=== PATIENT | male | born 1965 | race Caucasian/White ===

== ENCOUNTER 2023-09-19 11:13 | Emergency (ER) | payer OTHER, SELFPAY ==
[2023-09-19 11:16] VITALS: BP 181/98
[2023-09-19 11:40] VITALS: BP 148/94
--- NOTE | 2023-09-19 11:50 | ED.GENMED ---
History of Present Illness
General
Chief Complaint: Headache
Source: patient
Exam Limitations: none
Time Seen by Provider: 09/19/23 11:30
Nursing documentation reviewed up to this point in time: agreed with
Travel History
Have you had any contact with someone who has COVID-19?: No
Do you have any symptoms of coronavirus? Fever > 100 degrees, chills, cough, shortness of breath, sore throat, loss of taste or smell, muscle aches, or headache?: No
History of Present Illness
History of Present Illness:
57-year-old male presents emergency department complaining of right-sided headache and neck pain for 3 weeks. He was started on steroids yesterday for his headache. He saw his eye doctor yesterday because his right pupil was more dilated than the
left.
Past History
Past History
ED Past Medical History: Other (Hypertension, hyperlipidemia, anxiety and depression) and Other (TMJ. Right ear 'swishing sounds' started a year ago. Chronic headaches since childhood, had neg CT 10 yrs ago. Gets headache 2/week, takes Tylenol with
good relief. Just started wearing glasses 9 mos ago. Last eye exam 04/2012.)
ED Past Surgical History: Orthopedic (knee, ankle surgery)
Social History
Tobacco: Non-smoker
Alcohol: None
Personal:
Living: with roommate
Employment: Employed (ged teacher.)
Family History
Family History: CAD
Review of Systems
Review of Systems
Allergies reviewed?: Yes
All Other Systems: Not applicable
Constitutional: Reports no symptoms
EENT: Reports no symptoms
Respiratory: Reports no symptoms
Cardiac: Reports no symptoms
ABD/GI: Reports no symptoms
: Reports no symptoms
Musculoskeletal: Reports no symptoms
Skin: Reports no symptoms
Neurological: Reports headache
Endocrine: Reports no symptoms
Hematologic/Lymphatic: Reports no symptoms
Psychiatric: Reports no symptoms
Phy Exam
Physical Exam
Physical Exam:
Physical Exam
General: no apparent distress, not acutely ill
Neck: supple. no meningeal signs. normal posterior pharynx
Heart: s1/s2 regular rate and rhythm, no murmur. equal radial
pulses.
HEENT: Pupils round reactive to light, EOMI, right pupil slightly larger than left
Lungs: no acute respiratory distress. clear bilaterally
Abdomen: normal bowel sounds. not tender. no CVAT
Neuro: alert and oriented. no focal neurological deficits cranial nerves II through XII intact
Skin: no rash
Psychiatric: well kept. interactive and cooperative
Extremities: no edema. no calf tenderness. negative homans. good distal pulses
Course
Orders/Labs/Results
Orders:
Orders
09/19/23 11:38
CT Head & Neck Angio W/wo IV Urgent
Comment:
Reason For Exam: right side woods, neck pain, dilated right pupil 3wks
Cardiac Monitoring- Treatment ONCE
09/19/23 11:43
IV Insert/Care/Rem.- Treatment PRN
09/19/23 11:53
Complete Blood Count/With Diff Urgent
Comprehensive Metabolic Panel Urgent
Erythrocyte Sed Rate Urgent
PT/INR [Prothrombin Time] Urgent
PTT Urgent
09/19/23 13:43
Ketorolac [Toradol] 15 mg IV NOW STA
Abnormal Lab Results
09/19/23
11:53
WBC 10.9 H 10^3/uL
(4.8-10.8)
Abs Immat Gran (auto) 0.1 H 10^3/uL
(0-0.05)
Absolute Neuts (auto) 9.7 H 10^3/uL
(1.4-6.5)
Absolute Lymphs (auto) 0.9 L 10^3/uL
(1.2-3.4)
Neutrophils % 88.9 H %
(42.2-75.2)
Lymphocytes % 8.1 L %
(20.5-51.1)
Monocytes % 1.4 L %
(1.7-9.3)
APTT 23.3 L Sec
(23.4-35.0)
Glucose 145 H mg/dl
(70-99)
ALT 63 H U/L
(0-50)
Albumin 5.1 H g/dl
(3.5-5.0)
09/19/23 11:53
09/19/23 11:53
Vital Signs
Initial and Last Documented VS:
Initial Vital Signs
Temp Pulse Resp BP Pulse Ox
98.3 F 107 20 181/98 98
09/19/23 11:16 09/19/23 11:16 09/19/23 11:16 09/19/23 11:16 09/19/23 11:16
Last Documented Vital Signs
Temp Pulse Resp BP Pulse Ox
98.3 F 89 20 144/87 97
09/19/23 11:16 09/19/23 12:46 09/19/23 12:46 09/19/23 12:00 09/19/23 12:46
MDM/Problems Addressed
Differential Diagnosis Includes:
Arterial dissection, CVA
MDM/Problems Addressed:
57 yo male with right-sided headache, possibly migraine. Do not suspect arterial dissection. Normal CTA. No neurologic deficits. Stable for discharge.
Chronic conditions affecting care: Neurological disorder (Migraines)
Acute Exacerbation and/or Progression of Chronic Illness: Neurological disorder (Migraines) and Psychiatric illness (Anxiety)
*Radiology
Radiology exam reviewed: radiology read reviewed (CTA head and neck no acute findings)
*Pulse Oximetry
Patient hypoxic: no
*EKG
Interpreted by ED Provider?: NA
*Consulting Group Analyst Interpretation
Rate: Consulting Group Analyst- N/A
*Critical Care Note
Total Time (30-74mins, 75-104mins- exclusive of procedures): Not Applicable
Patient Management
Social determinants of health affecting care: Strong social support
Escalation/DeEscalation of care consider admission/obs:
Admit not indicated
ED Attending Note
-
Portions of this chart may have been created with voice recognition software.� Occasional wrong word or��sound alike� substitutions may have occurred due to the inherent limitations of voice recognition software.
Discharge Plan
Departure
Patient Disposition: Home (Routine Discharge)
Date of Disposition: 09/19/23
Time of Disposition: 13:54
Patient with high blood pressure during this ER visit?: Yes
Condition: Good
Discharge Problem:
Headache
Instructions: Headache, Adult (DC), BLOOD PRESSURE
Prescriptions:
No Action
multivitamin [Daily Multiple] 1 EACH tablet
1 tab PO DAILY
alprazolam 0.25 MG tablet
0.25 mg PO Q8HPRN PRN (Reason: anxiety)
amlodipine 5 MG tablet
10 mg PO DAILY
atorvastatin 10 MG tablet
10 mg PO DAILY
Patient Comments:
dose unknown by patient
cholecalciferol (vitamin D3) 2,000 UNIT tablet
1 tab PO DAILY
cannabidiol [Epidiolex] 1 UNIT solution
1
Referrals:
NONE,* [Active] -
Activity Restrictions/Additional Instructions:
Follow up with primary care in 3-5 days.
Interventions
Interventions:
*Risk Screen - Suicide Last Done: 09/19/23 11:16
*General Assessment Last Done: 09/19/23 11:16
*Neglect/Abuse Screening Last Done: 09/19/23 11:16
ED- Fall Risk Assessment Last Done: 09/19/23 11:38
*ED COVID-19 Vaccine History Last Done: 09/19/23 11:38
ED- Neurological Assessment Last Done: 09/19/23 11:38
Discharge Date and Time
Print Language: [id number]
[2023-09-19 12:00] VITALS: BP 144/87
[2023-09-19 12:08] LABS: % Basophils 0.9 % (0-2); % Eosinophils 0.2 % (0-6); % Immature Granulocytes 0.5 % (0-0.5); % Lymphocytes 8.1 % (20.5-51.1); % Monocytes 1.4 % (1.7-9.3); % Neutrophils 88.9 % (42.2-75.2); Absolute Basophils 0.1 10^3/uL (0-0.2); Absolute Immature Granulocytes 0.1 10^3/uL (0-0.05); Absolute Lymphocytes 0.9 10^3/uL (1.2-3.4); Absolute Monocytes 0.2 10^3/uL (0.1-0.6); Absolute Neutrophils 9.7 10^3/uL (1.4-6.5); Hematocrit 46.3 % (39.0-52.0); Hemoglobin 16.4 g/dL (13.0-18.0); Mean Corp Hgb Conc. 35.4 g/dL (33.0-37.0); Mean Corpuscular Hgb 29.7 pg (27.0-31.0); Mean Corpuscular Volume 83.7 fL (80.0-94.0); Mean Platelet Volume 9.6 fL (7.4-10.4); Nucleated Red Blood Cells % 0 % (-); Platelet Count 333 10^3/uL (130-400); Red Blood Cell Count 5.53 10^6/uL (4.70-6.10); White Blood Cell Count 10.9 10^3/uL (4.8-10.8)
[2023-09-19 12:34] LABS: INR 0.92; PT 12.4 Sec (11.4-14.6)
[2023-09-19 12:35] LABS: APTT 23.3 Sec (23.4-35.0)
[2023-09-19 12:36] LABS: ALT (SGPT) 63 U/L (0-50); AST (SGOT) 41 U/L (17-59); Albumin 5.1 g/dl (3.5-5.0); Alkaline Phosphatase 80 U/L (38-126); Blood Urea Nitrogen 16 mg/dl (9-20); Calcium 10.1 mg/dl (8.4-10.2); Carbon Dioxide 24 mmol/L (22-30); Chloride 106 mmol/L (98-107); Estimated Creatinine Clearance 102 ml/min; Glucose 145 mg/dl (70-99); Potassium 4.8 mmol/L (3.5-5.1); Sodium 143 mmol/L (135-145); Total Bilirubin 0.6 mg/dl (0.2-1.3); Total Protein 7.9 g/dl (6.3-8.2); eGFR > 60.00
[2023-09-19 12:46] LABS: Erythrocyte Sed Rate 8 mm/hour (0-20)
[2023-09-19] MEDS: TORADOL 15 MG IV (13:58)
[2023-09-19 14:05] VITALS: BP 148/82
== END 2023-09-19 14:08 | disposition home or self-care (01) ==
LOC: EMR 11:13
PROVIDERS: EMERGENCY PHYSICIAN Emergency Medicine; FAMILY PHYSICIAN Family Medicine
DX: R51.9 Headache, unspecified (principal); I10 Essential (primary) hypertension; E78.00 Pure hypercholesterolemia, unspecified; F41.8 Other specified anxiety disorders; Z82.49 Family history of ischemic heart disease and other diseases of the circulatory system
CPT/HCPCS: 99284; 96374; 70496; 70498; 80053; 85025; 85610; 85652; 85730; Q9967

== ENCOUNTER → 2023-11-29 11:17 | Outpatient (REF) | payer OTHER, SELFPAY | LOC: HWRAD 11:17 | PROVIDERS: ATTENDING PHYSICIAN Family Medicine | DX: M54.2 Cervicalgia (principal) | CPT/HCPCS: 72052 ==

== ENCOUNTER 2024-04-07 08:51 | Outpatient (RCR) | payer OTHER, SELFPAY | END 2024-04-07 23:59 | disposition home or self-care (01) | LOC: RPT 08:51 | PROVIDERS: ATTENDING PHYSICIAN Physical Medicine & Rehabilitation; FAMILY PHYSICIAN Family Medicine | DX: Z47.1 Aftercare following joint replacement surgery (principal); M47.812 Spondylosis without myelopathy or radiculopathy, cervical region; Z73.6 Limitation of activities due to disability; M54.2 Cervicalgia; G89.29 Other chronic pain; R51.9 Headache, unspecified; Z96.641 Presence of right artificial hip joint | CPT/HCPCS: 97110; 97112; 97140; 97163 ==

== ENCOUNTER 2024-04-21 08:55 | Outpatient (RCR) | payer OTHER, SELFPAY | END 2024-04-21 23:59 | disposition home or self-care (01) | LOC: RPT 08:55 | PROVIDERS: ATTENDING PHYSICIAN Physical Medicine & Rehabilitation; FAMILY PHYSICIAN Family Medicine | DX: Z47.1 Aftercare following joint replacement surgery (principal); M47.812 Spondylosis without myelopathy or radiculopathy, cervical region; Z73.6 Limitation of activities due to disability; M54.2 Cervicalgia; G89.29 Other chronic pain; R51.9 Headache, unspecified; Z96.641 Presence of right artificial hip joint | CPT/HCPCS: 97110; 97112; 97140 ==

== ENCOUNTER → 2024-05-17 06:52 | Outpatient (REF) | payer OTHER, SELFPAY | LOC: MRI 3T 06:52 | PROVIDERS: ATTENDING PHYSICIAN Orthopaedic Surgery; FAMILY PHYSICIAN Family Medicine | DX: M25.512 Pain in left shoulder (principal) | CPT/HCPCS: 73221 ==

== ENCOUNTER → 2024-05-23 16:00 | Outpatient (REF) | payer OTHER, SELFPAY | LOC: RAD 16:00 | PROVIDERS: ATTENDING PHYSICIAN Nurse Practitioner Family | DX: R50.9 Fever, unspecified (principal) | CPT/HCPCS: 71046 ==

== ENCOUNTER → 2024-09-07 13:29 | Outpatient (REF) | payer OTHER, SELFPAY | LOC: PAVMRI 13:29 | PROVIDERS: ATTENDING PHYSICIAN Nurse Practitioner Family; FAMILY PHYSICIAN Family Medicine | DX: H93.13 Tinnitus, bilateral (principal) | CPT/HCPCS: 70544 ==

== ENCOUNTER 2024-12-29 06:25 | Day surgery (SDC) | payer OTHER, SELFPAY | END 2024-12-29 10:13 | disposition home or self-care (01) | LOC: GI 06:25 | PROVIDERS: ATTENDING PHYSICIAN Internal Medicine Gastroenterology | DX: K22.70 Barrett's esophagus without dysplasia (principal); K44.9 Diaphragmatic hernia without obstruction or gangrene | CPT/HCPCS: 43239; 88305; 88342 ==

== ENCOUNTER → 2025-01-30 08:30 | Outpatient (REF) | payer OTHER, SELFPAY | LOC: DHSLP 08:30 | PROVIDERS: ATTENDING PHYSICIAN Internal Medicine; FAMILY PHYSICIAN Family Medicine | DX: G47.33 Obstructive sleep apnea (adult) (pediatric) (principal); G47.61 Periodic limb movement disorder; G47.00 Insomnia, unspecified | CPT/HCPCS: 95810 ==

== ENCOUNTER 2025-03-04 06:12 | Day surgery (SDC) | payer OTHER, SELFPAY | END 2025-03-04 09:58 | disposition home or self-care (01) | LOC: GI 06:12 | PROVIDERS: ATTENDING PHYSICIAN Internal Medicine Gastroenterology | DX: K22.70 Barrett's esophagus without dysplasia (principal); K44.9 Diaphragmatic hernia without obstruction or gangrene | CPT/HCPCS: 43239; 88305; 88342 ==